=== PATIENT | male | born 1970 | race Caucasian/White ===

== ENCOUNTER 2017-12-21 18:27 | Emergency (ER) | payer BC ==
[2017-12-21] MEDS ORDERED: 0.9 % SODIUM CHLORIDE 1,000 ML BAG IV ONE ×2 (18:40→19:44)
--- NOTE | 2017-12-21 18:45 | Emergency Department Record ---
History of Present Illness - General Chief complaint: Hypergylcemia Stated complaint: HIGH BLOOD SUGAR Time Seen by Provider: 12/21/17 18:35 Source: Patient Mode of Arrival: Ambulatory Limitations: No limitations - History of Present Illness Initial comments: 47 yo male states that he has felt fatigue, weakness and run down for many weeks. Today he used a family members glucometer to check his blood sugar. It was elevated at 380. He in not on any medications. He denies a history of diabetes. He has had increase thirst and urination. He has not had a PCP for many years. He has an appointment with the [facility] on January 02. Complaint: Generalized weakness Onset/Timin -: Month(s) Severity: Moderate Severity scale (1-10): 6 Quality: Aching Improves with: Rest Worsens with: Exertion Context: Other Associated Symptoms: Denies other symptoms - Thurmond Coma Scale Eye Response: (4) Open spontaneously Motor Response: (6) Obeys commands Verbal Response: (5) Oriented Christel Total: 15 - Related Data Previous Rx's Medication Instructions Recorded Amoxicillin 500Mg Capsule [Amoxil] 500 mg PO TID #30 tab 12/21/17 Metformin HCl 500 mg PO BID #60 tab 12/21/17 Allergies Allergy/AdvReac Type Severity Reaction Status Date / Time No Known Drug Allergies Allergy Verified 12/21/17 18:40 Travel Screening - Travel/Exposure Within Last 30 Days Have you traveled within the last 30 days?: No - Travel/Exposure Within Last Year Have you traveled outside the [place] in the last year?: No - Additonal Travel Details Have you been exposed to anyone with a communicable illness?: No - Travel Symptoms Symptom Screening: None Review of Systems Constitutional: Reports: Malaise, Weakness. Denies: Chills, Fever Eyes: Denies: Eye discharge, Eye pain, Photophobia, Vision change ENT: Reports: Congestion. Denies: Dental pain, Ear pain, Epistaxis Respiratory: Denies: Cough, Dyspnea, Wheezes Cardiovascular: Denies: Chest pain, Palpitations, Syncope Endocrine: Reports: Fatigue, Polydipsia, Polyuria Gastrointestinal: Reports: Nausea. Denies: Abdominal pain, Diarrhea, Hematemesis, Hematochezia, Melena, Vomiting Genitourinary: Reports: Frequency. Denies: Dysuria, Hematuria, Incontinence Musculoskeletal: Denies: Arthralgia, Back pain, Myalgia Skin: Denies: Bruising, Change in color, Rash Neurological: Denies: Headache, Numbness Psychiatric: Denies: Anxiety Hematological/Lymphatic: Denies: Blood Clots, Easy bleeding, Easy bruising, Swollen glands Past Medical History - SOCIAL HISTORY Smoking Status: Current every day smoker Alcohol Use: Rare Drug Use: None - RESPIRATORY Hx Respiratory Disorders: No - CARDIOVASCULAR Hx Cardio Disorders: No - NEURO Hx Neuro Disorders: No - GI Hx GI Disorders: No - Hx Genitourinary Disorders: No - ENDOCRINE Hx Endocrine Disorders: No - MUSCULOSKELETAL Hx Musculoskeletal Disorders: Yes - PSYCH Hx Psych Problems: No - HEMATOLOGY/ONCOLOGY Hx Hematology/Oncology Disorders: No Family Medical History Any Significant Family History?: Yes Hx Cancer: Grandparents Hx Diabetes: Grandparents Physical Exam - General General Appearance: Alert, Oriented x3, Cooperative, No acute distress Limitations: No limitations - Head Head exam: Atraumatic, Normal inspection - Eye Eye exam: negative: Normal appearance (xanthalasthma), Conjunctival injection, Scleral icterus - ENT ENT exam: Normal exam, Mucous membranes moist, Normal orophraynx Ear exam: Normal external inspection Nasal Exam: Discharge, Sinus tenderness. negative: Normal inspection Mouth exam: Normal external inspection Teeth exam: Normal inspection Throat exam: Normal inspection - Neck Neck exam: Normal inspection, Full ROM. negative: Tenderness - Respiratory Respiratory exam: Normal lung sounds bilaterally. negative: Respiratory distress - Cardiovascular Cardiovascular Exam: Regular rate, Normal rhythm, Normal heart sounds - GI/Abdominal GI/Abdominal exam: Soft. negative: Guarding, Hernia, Tenderness - Rectal Rectal exam: Deferred - exam: Deferred - Extremities Extremities exam: Normal inspection, Full ROM, Normal capillary refill. negative: Tenderness - Back Back exam: Reports: Normal inspection, Full ROM. Denies: Muscle spasm, Rash noted, Tenderness - Neurological Neurological exam: Alert, Normal gait, Oriented X3 - Psychiatric Psychiatric exam: Normal affect, Normal mood - Skin Skin exam: Dry, Intact, Normal color, Warm Course Vital Signs 12/21/17 18:29 Temperature 99.4 F Pulse Rate 113 H Respiratory 18 Rate Blood Pressure 136/94 Pulse Ox 95 - Reevaluation(s) Reevaluation #1: 12/21/17 18:May random glucose 199 in ED 12/21/17 19:22 The CBC and Acetone are normal 12/21/17 20:29 The remaining labs were reviewed Normal pH. No DKA A1C is [address] Diaz He recommends Metformin 500mg BID He will call the office to get the patient seen prior to the as previously scheduled. Medical Decision Making - Lab Data Result diagrams: 12/21/17 18:50 12/21/17 18:50 Disposition Disposition: Discharge Clinical Impression: Hyperglycemia, Sinusitis Disposition: Home, Self-Care Condition: (1) Good Instructions: Diabetic Hyperglycemia (ED) Additional Instructions: Call the office on Saturday to be seen You will start the Metformin 2 times daily Return if have any concerns with the medication or how you feel on the medicine Prescriptions: Amoxicillin 500Mg Capsule [Amoxil] 500 mg PO TID #30 tab Metformin HCl 500 mg PO BID #60 tab Forms: Patient Portal Access Time of Disposition: 20:30 Quality - Quality Measures Quality Measures: N/A - Blood Pressure Screening Does Patient Have Any of the Following: No Blood Pressure Classification: Hypertensive Reading Systolic Measurement: 136 Diastolic Measurement: 94 Screening for High Blood Pressure: < Pre-Hypertensive BP, F/U Documented > [ [id number]] Pre-Hypertensive Follow-up Interventions: Referral to alternative/primary care provider.
[2017-12-21 19:03] LABS: BASO % 0.4 % (0-6); EOS % 0.8 % (0-6); GRAN % 64.4 % (47-80); HEMATOCRIT 42.5 % (42.0-52.0); MEAN CELL VOLUME 85.3 fl (81-97); MEAN CORPUSCULAR HEMOGLOBIN 30.1 pg (27-33); MEAN CORPUSCULAR HGB CONC 35.3 g/dl (32-36); MEAN PLATELET VOLUME 9.2 fl (7.4-10.4); MONO % 9.4 % (0-9); PLATELET COUNT 367 K/uL (130-400); RED BLOOD COUNT 4.98 M/uL (4.40-5.70); RED CELL DISTRIBUTION WIDTH 12.3 % (11.5-14.5); WHITE BLOOD COUNT W/O DIFF 10.9 K/uL (4.2-12.2)
[2017-12-21 19:14] LABS: ACETONE,SERUM NEGATIVE (NEGATIVE)
[2017-12-21 19:15] LABS: BLOOD UREA NITROGEN 13 mg/dL (6-20); CREATININE 0.8 mg/dL (0.7-1.2); EST GLOMERULAR FILTRATION RATE > 60 mL/min
[2017-12-21 19:16] LABS: TOTAL PROTEIN 7.7 g/dL (6.6-8.7)
[2017-12-21 19:18] LABS: GLUCOSE,RANDOM 330 mg/dL (74-109)
[2017-12-21 19:20] LABS: ALB/GLOB RATIO 1.1 (1.1-1.8); ALBUMIN 4.1 g/dL (4.0-5.0); ALKALINE PHOSPHATASE 94 U/L (40-129); ALT/SGPT 19 U/L (<41); AST/SGOT 15 U/L (10.0-50.0)
[2017-12-21 19:31] LABS: THYROID STIMULATING HORMONE 2.18 uIU/mL (0.270-4.20)
[2017-12-21 20:15] LABS: URINE APPEARANCE CLEAR; URINE BILIRUBIN NEGATIVE (NEGATIVE); URINE BLOOD NEGATIVE (NEGATIVE); URINE COLOR YELLOW; URINE KETONE NEGATIVE (NEGATIVE); URINE LEUKOCYTE ESTERASE NEGATIVE (NEGATIVE); URINE NITRITE NEGATIVE (NEGATIVE); URINE PROTEIN NEGATIVE (NEGATIVE); URINE UROBILINOGEN 0.2 E.U./dL (0.20 - 1.00)
[2017-12-21 20:16] LABS: URINE GLUCOSE (UA) >=1000 mg/dL (NEGATIVE)
[2017-12-21] MEDS ORDERED: METFORMIN 500 MG TABLET PO ONE (20:30)
== END 2017-12-21 20:52 | disposition home or self-care (01) ==
LOC: ER 18:27
DX: E11.65 Type 2 diabetes mellitus with hyperglycemia (principal); R53.83 Other fatigue; J32.9 Chronic sinusitis, unspecified; F17.290 Nicotine dependence, other tobacco product, uncomplicated; Z79.84 Long term (current) use of oral hypoglycemic drugs
CPT/HCPCS: 36416; 80053; 81003; 82009; 82800; 82948; 83036; 84443; 85025; 99284; J7030